=== PATIENT | female | born 1950 | race Caucasian/White ===

== ENCOUNTER 2016-06-09 13:37 | Emergency (ER) | payer SELFPAY ==
[~2016-06-09] VITALS: Ht 160 cm; Wt 54.4 kg
[2016-06-09 13:39] VITALS: BP 110/63
--- NOTE | 2016-06-09 16:38 | NUR ---
PT AMBULATED TO BED 5 AT THIS TIME.
--- NOTE | 2016-06-09 16:40 | NUR ---
65F BIB FAMILY C/O VOMITING X 6 DAYS; PT STATES VOMITTED X 2 EPISODES TODAY; ABDOMEN SOFT, NON-TENDER, ACTIVE BOWEL SOUNDS X 4 QUADRANTS; PT C/O ACHING PAIN, 8/10 X 8 DAYS; STATES " MY WHOLE BODY HURTS"; PT C/O DRY COUGH X 8 DAYS; HX: ASTHMA; BL LUNG SOUNDS CLEAR, RR EVEN/UNLABORED, SKIN IS WARM/DRY/INTACT AT THIS TIME; PT A&OX4, PERRL, STEADY GAIT; PT RESTING IN BED W/ HOB ELEVATED AND IN LOWEST POSITION; POSITIONED FOR COMFORT; ER MD MADE AWARE OF STATUS. WILL CONTINUE TO MONITOR.
--- NOTE | 2016-06-09 16:42 | NUR ---
PT DENIES SUPPLEMENTAL OXYGEN; O2 SAT 96 % ON ROOM AIR AT THIS TIME; PT STATES " I'M BREATHING FINE"; ER MD DR. MCGRATH NOTIFIED; NO ACUTE DISTRESS NOTED AT THIS TIME; WILL CONTINUE TO MONITOR.
[2016-06-09] MEDS ORDERED: ALBUTEROL 0.083% 2.5 MG/3 ML NEBU INH ONE (16:55)
[2016-06-09] MEDS ORDERED: ONDANSETRON 4 MG ODT PO ONE (17:00)
--- NOTE | 2016-06-09 17:11 | NUR ---
RT AT BEDSIDE.
--- NOTE | 2016-06-09 17:13 | NUR ---
ADMITING DX: VOMITING HX: ASTHMA AWAKE AND ALERT RESPONSIVE PLACED IN [facility] POSITION EDUCATION PROVIDED TO PATIENT WITH ACKNOWLEDGEMENT ON HHN THERAPY AND RESPIRATORY DRUG HHN THERAPY GIVEN ORDERED ENCOURAGED DEEP BREATHING DURING THERAPY INTERMITTENT STRONG MOIST NPC TOLERATED THERAPY WELL WITHOUT INCIDENT
--- NOTE | 2016-06-09 17:36 | NUR ---
PT TAKEN TO XRAY VIA W/C ACCOMAPANIED BY [employer].
[2016-06-09 18:13] VITALS: BP 109/68
--- NOTE | 2016-06-09 18:13 | NUR ---
Patient discharged with v/s stable. Written and verbal after care instructions given and explained. Patient alert, oriented and verbalized understanding of instructions. Ambulatory with steady gait. All questions addressed prior to discharge. ID band removed. Patient advised to follow up with PMD. Rx of ZOFRAN ODT 4MG given. Patient educated on indication of medication including possible reaction and side effects. Opportunity to ask questions provided and answered.
== END 2016-06-09 18:13 | disposition home or self-care (01) ==
LOC: MED 13:37
DX: J06.9 Acute upper respiratory infection, unspecified (principal); K52.9 Noninfective gastroenteritis and colitis, unspecified; J45.909 Unspecified asthma, uncomplicated
CPT/HCPCS: 74022; 81002; 81025; 94640; 99283; J7613; S0119